=== PATIENT | male | born 1960 | race Caucasian/White ===

== ENCOUNTER 2023-10-30 10:19 | Emergency (ER) | payer OTHER, SELFPAY ==
[2023-10-30] VITALS (7 sets, daily range): BP systolic 177–192; BP diastolic 87–101; PULSE 61–101; RESP 13–25; TEMP 36.2; O2SAT 96–98; BMI 28.3
--- NOTE | 2023-10-30 10:57 | EKG12_ITS ---
Test Reason : CHEST PAIN Blood Pressure : / mmHG Vent. Rate : 073 BPM Atrial Rate : 073 BPM P-R Int : 156 ms QRS Dur : 074 ms QT Int : 372 ms P-R-T Axes : 036 -09 038 degrees QTc Int : 409 ms Normal sinus rhythm Confirmed by Tony Galan ([id number]), publication editor AMANDA GAMBINO ([id number]) on 11/03/2023 6:59:06 AM Referred By: Confirmed By:Tony Galan
--- NOTE | 2023-10-30 10:59 | EX.ED.DYSGE1 ---
HPI History of Present Illness Chief Complaint: Confusion Informant: patient and spouse/S.O. Onset/Context/Timing Onset: Days (10 days) Narrative Narrative: Patient presents with his secondary to confusion and paranoia. For the last 10 to 11 days patient has had increasing anxiety. He has been making statements that are not true and he is having difficulty truth from fiction. He was seen by traffic administrator at his PCPs office last Friday where blood work was obtained. He was given Zoloft and hydroxyzine. states that they stopped the hydroxyzine 2 days ago because it seem to be making him more anxious. He has an outpatient MRI scheduled on November 06, but states that they were sent to the ER today to try to expedite this. [facility] Medical History (Updated 10/30/23 @ 14:[address] Bev Wells MD) Vertigo Vasectomy planned Cholecystectomy planned Hypertension Home Medications ?Medication ?Instructions ?Recorded ?Last Taken ?Type lisinopril 20 mg tablet 20 mg PO DAILY 10/30/23 Unknown History sertraline 50 mg tablet 50 mg PO Q24H 10/30/23 Unknown History Allergy/AdvReac Type Severity Reaction Status Date / Time No Known Allergies Allergy Verified 10/30/23 10:31 Social History Smoking Status: Never smoker ROS ROS ED ROS Narrative Patient confused and not answering questions appropriately. EXAM Physical Exam Const Vital Signs: 10/30/23 10:19 10/30/23 10:19 10/30/23 11:37 Temperature 97.2 F L Temperature Source Temporal Pulse Rate 98 101 H 73 Respiratory Rate 14 14 25 H Blood Pressure 178/101 H 178/101 H 182/87 H Blood Pressure Mean 126 126 118 Pulse Ox 98 98 98 Oxygen Delivery Method Room Air Room Air Room Air 10/30/23 11:37 10/30/23 12:00 10/30/23 13:00 Temperature Temperature Source Pulse Rate 69 61 63 Respiratory Rate 22 H 21 H 22 H Blood Pressure 182/87 H 192/95 H 177/89 H Blood Pressure Mean 118 127 118 Pulse Ox 96 97 97 Oxygen Delivery Method Room Air 10/30/23 14:00 Temperature Temperature Source Pulse Rate 79 Respiratory Rate 23 H Blood Pressure 179/99 H Blood Pressure Mean 125 Pulse Ox 96 Oxygen Delivery Method Room Air Positive well nourished and well developed General Appearance ED: well developed HEENT Reports moist mucous membranes Eyes Eyes Narrative: Pupils approximate 4 mm bilaterally and reactive. Patient staring straight forward and does not make appropriate eye contact. Neck Neck Narrative: No meningismus or rigidity. Chest Wall inspection of chest normal and palpation of chest normal Resp normal respiratory effort and clear to auscultation bilaterally Cardio regular rate and regular rhythm GI non-tender Palpation: soft Extremity normal to inspection Neuro Neuro Narrative: Patient not answering questions appropriately. He will follow commands to lift his arms and legs off the bed with no evidence of deficit. 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 EKG obtained to evaluate for cardiac arrhythmia/ischemia. IV line initiated. Labwork obtained to evaluate for leukocytosis, anemia, and electrolyte derangement. CT scan along with CT of the head and neck obtained to evaluate for any acute intracranial abnormalities. History & Record Review Discussion w/independent historian: Patient and Significant other Lab Data Attestation: I reviewed the patient's lab results. Labs: Laboratory Results - last 24 hr 10/30/23 10/30/23 11:00 13:55 WBC 17.1 H RBC 5.90 Hgb 17.1 H Hct 50.2 MCV 85.1 MCH 29.0 MCHC 34.1 RDW Std Deviation 37.9 RDW Coeff of Hallie 12.2 Plt Count 386 MPV 9.3 Immature Gran % (Auto) 0.300 Neut % (Auto) 81.2 H Lymph % (Auto) 10.4 L Storey % (Auto) 7.8 Eos % (Auto) 0.1 Baso % (Auto) 0.2 Absolute Neuts (auto) 13.9 H Absolute Lymphs (auto) 1.78 Nucleated RBC % 0 Sodium 133 L Potassium 4.1 Chloride 104 Carbon Dioxide 20.0 L Anion Gap 9 BUN 12 Creatinine 1.01 Estim Creat Clear Calc 86.81 Est GFR (MDRD) Af Amer 96 Est GFR (MDRD) Non-Af 79 BUN/Creatinine Ratio 11.9 Glucose 119 H Calcium 9.6 Total Bilirubin 0.60 Direct Bilirubin 0.19 AST 20 ALT 32 Alkaline Phosphatase 93 Total Protein 7.9 Albumin 3.8 Globulin 4.1 Ur Drug Screen Comment Ethyl Alcohol < 3.0 Radiography Chest X-Ray - ED: 1 View, Read by ED Physician, Chronic Changes and No Infiltrates Diagnostic Testing: Clinical Impression(s) from Imaging Studies Head/Neck CTA 10/30/23 11:30 IMPRESSION: Minimal plaque formation at the origin of the left internal carotid artery. Findings suggest normal pressure hydrocephalus. Electronically Signed: Derek Moore MD at 12:20 EDT , Chest X-Ray 10/30/23 12:30 IMPRESSION: Normal x-ray examination of the chest. Electronically Signed: Derek Moore MD at 12:47 EDT , EKG Initial EKG: Attestation: I personally reviewed and interpreted this EKG as follows: Interpretation: Sinus Rhythm (Sinus rhythm at 73 bpm. No acute ischemia.) Treatment and Re-Evaluation :: CBC reveals leukocytosis with a white count of 17.1 and 81% neutrophils. Hemoglobin is concentrated at 17.1. Chemistry studies unremarkable with normal renal function. LFTs are normal. EtOH is less than 3. Portable chest x-ray per my interpretation reveals chronic changes with no focal infiltrate. Radiology interpretation reviewed and agrees. EKG is sinus rhythm with no evidence of acute ischemia. CTA of the head and neck obtained along with noncontrast head CT. This reveals changes concerning for normal pressure hydrocephalus. There is minimal plaque formation at the origin of the left internal carotid. Test results were discussed with at bedside. Patient is currently sleeping comfortably. With patient having problems with vertigo I do question whether this may be balance issues associated with NPH. He is now having increased confusion and agitation. I do feel he warrants evaluation at a facility with neurosurgery available given his findings of NPH. Patient has been accepted at [facility] for ER to ER transfer and evaluation. Discharge Plan Triage Chief Complaint: Confusion ED Provider: Bev Wells Dx/Rx/DC Orders Clinical Impression: NPH (normal pressure hydrocephalus), Confusion, Leukocytosis Prescriptions: No Action sertraline 50 mg tablet 50 mg PO Q24H lisinopril 20 mg tablet 20 mg PO DAILY Primary Care Provider: Nico Pace Referrals: Nico Pace MD [Primary Care Provider] - Print Language: Faroese Disposition Disposition: Acute Care Hospital Discharge Location: [facility] / [facility]
[2023-10-30 11:15] LABS: Absolute Lymphocyte Count 1.78 X10^3/uL (0.83-4.51); Absolute Neutrophil Count 13.9 X10^3/uL (2.0-7.7); Basophil# 0.03 X10^3/uL; Basophil% 0.2 % (0-1); Eosinophil# 0.01 X10^3/uL; Eosinophils% 0.1 % (0-5); Hematocrit 50.2 % (40-54); Hemoglobin 17.1 g/dL (13.0-16.5); Lymphocyte # 1.78 X10^3/ul (0.83-4.51); Lymphocyte % 10.4 % (19-41); Mean Corp Hgb Conc 34.1 g/dL (32-36); Mean Corpuscular Volume 85.1 fL (80-94); Mean Platelet Vol. 9.3 fl (6.2-12.0); Monocyte# 1.33 X10^3/uL; Monocyte% 7.8 % (0-10); NRBC Flagged by Analyzer 0 % (0-5); Neutrophil # 13.93 X10^3/uL (2.7-7.7); Neutrophil % 81.2 % (47-70); Platelet Count 386 K/mm3 (150-450); RBC Distribution Width CV 12.2 % (11.6-14.6); RBC Distribution Width SD 37.9 fl (35.1-43.9); White Blood Count 17.1 K/mm3 (4.4-11.0)
[2023-10-30 11:25] LABS: Alcohol, Blood (Medical)-Serum < 3.0 mg/dL
--- NOTE | 2023-10-30 11:30 | CT_ITS ---
STUDY: CTA HEAD AND NECK WITH CONTRAST REASON FOR EXAM: Male, 63 years old. Confusion RADIATION DOSAGE (If Supplied By Facility): CTDIvol = ( 28.23 ) mGy, DLP = ( 1536.74 ) mGycm TECHNIQUE: CT angiography was performed with a multi-detector CT scanner. Data acquisition was obtained from the skull base through the vertex following intravenous administration of IV 100mL [id number]-[id number]. MIP images were reconstructed from the axial data set. Post-processing of the angiographic images was performed, with multiplanar reformation and 3D reconstruction. Individualized dose optimization techniques were used for this CT. COMPARISON: No relevant priors. FINDINGS: Normal bilateral petrous carotid arteries. Normal right cavernous carotid artery with a normal supraclinoid bifurcation. Normal left cavernous carotid artery with a normal supraclinoid bifurcation. Normal right A1 segments of the anterior cerebral artery. Normal left A1 segments of the anterior cerebral artery. Normal intact anterior communicating artery (ACOM). Normal bilateral A2 segments of the anterior cerebral arteries. Normal right M1 and M2 segments of the middle cerebral arteries, with a normal M1 bifurcation. Normal left M1 and M2 segments of the middle cerebral arteries, with a normal M1 bifurcation. Normal right posterior communicating artery (PCOM). Normal left posterior communicating artery (PCOM). Normal bilateral vertebral arteries. Normal basilar artery with a normal basilar bifurcation. The visualized bilateral superior cerebellar (SCA) arteries are normal. Normal bilateral P1, P2 and visualized P3 segments of the posterior cerebral arteries. There is no demonstrated aneurysm of the rampart of [place]. Findings suggestive of normal pressure hydrocephalus. There is a 1.7 cm x 1.3 cm cystic nodule in the right lobe of the thyroid. AORTIC ARCH: Normal visualized aortic arch. Normal origins of the brachiocephalic, left common carotid, and left subclavian arteries. RIGHT CAROTID ARTERIES: Normal right common carotid artery (CCA). Normal right common carotid bulb. Normal origin of the right internal carotid (ICA) artery without a hemodynamically significant stenosis. Normal visualized cervical portion of the right internal carotid artery. Normal origin of the right external carotid artery (ECA). LEFT CAROTID ARTERIES: Normal left common carotid artery (CCA). Normal left common carotid bulb. There is mild atherosclerotic plaque formation of the origin of the left internal carotid artery with less than 50% cross sectional diameter stenosis. Normal visualized cervical portion of the left internal carotid artery. Normal origin of the left external carotid artery (ECA). VERTEBRAL ARTERIES: There is enhancement within the bilateral vertebral arteries with a small left vertebral artery, and a dominant right vertebral artery. CT/CTA Head AND Neck W/ Contrast IMPRESSION: Minimal plaque formation at the origin of the left internal carotid artery. Findings suggest normal pressure hydrocephalus. Electronically Signed: Derek Moore MD at 12:20 EDT ,
[2023-10-30 11:32] LABS: AST(SGOT) 20 U/L (15-37); Alanine Aminotransfer ALT/SGPT 32 U/L (16-61); Albumin, Serum 3.8 g/dL (3.2-5.0); Alkaline Phosphatase 93 U/L (45-117); Anion Gap 9 (5-15); BUN 12 mg/dL (7-18); BUN/Creat Ratio 11.9 RATIO (10-20); Bilirubin, Direct 0.19 mg/dL (0.00-0.30); Calcium,Total 9.6 mg/dL (8.5-10.1); Chloride 104 mmol/L (98-107); Creatinine, Serum 1.01 mg/dL (0.70-1.30); EST Glomerular Filtration Rate 79 mL/min (>60); Est Glom Filt Rate - Afr Amer 96 mL/min (>60); Estimated Creatinine Clearance 86.81 ml/min; Globulin 4.1 g/dL (2.2-4.2); Glucose 119 mg/dL (74-106); Potassium 4.1 mmol/L (3.5-5.1); Protein, Total 7.9 g/dL (6.4-8.2); Sodium Level 133 mmol/L (136-145)
[2023-10-30] MEDS: 0.9% Normal Saline (1000mL) 1,000 ML 150 ML IV (11:38)
--- NOTE | 2023-10-30 12:30 | RAD_ITS ---
STUDY: X-RAY CHEST REASON FOR EXAM: Male, 63 years old. Confusion TECHNIQUE: Single AP portable view of the chest. COMPARISON: Comparison is made with prior study July 17, 2007. FINDINGS: EKG electrodes are seen. The lungs are clear and expanded. There is no demonstrated pleural abnormality. Normal size heart. Normal mediastinum and all. Normal visualized pulmonary arteries. Normal visualized aortic arch and descending thoracic aorta. There are degenerative changes of the visualized thoracic spine. Normal visualized ribs, clavicles, and shoulders. There is no demonstrated abnormality of the visualized soft tissue structures of the upper abdomen. RAD/Chest 1 View (Portable) IMPRESSION: Normal x-ray examination of the chest. Electronically Signed: Derek Moore MD at 12:47 EDT ,
[2023-10-30 14:01] LABS: Mucous, Urine 0 SEEN /hpf (<or=2+); Red Blood Cells-Urine 0 SEEN /hpf (0-5)
[2023-10-30 14:23] LABS: Amphetamine Urine VISTA NEGATIVE (<1000 ng/mL); Barbiturate Urine VISTA NEGATIVE (< 200 ng/mL); Benzodiazepine Urine VISTA NEGATIVE (< 200 ng/mL); Cocaine Urine VISTA NEGATIVE (< 300 ng/mL); Ecstacy Urine VISTA NEGATIVE (< 500 ng/mL); Methadone Urine VISTA NEGATIVE (< 300 ng/mL); PCP Urine VISTA NEGATIVE (< 25 ng/mL); THC Urine VISTA NEGATIVE (< 50 ng/mL); Vista UDS pH Range 6
[2023-10-30 14:27] LABS: Color, Urine Yellow (Yellow); Glucose, Dipstick Normal (Normal); Ketone-Dipstick 15 mg/dl (Negative); Leukocyte Esterase-Dipstick Negative /ul (Negative); Nitrite-Dipstick Negative (Negative); Occult Blood-Urine Negative /ul (Negative); Protein-Dipstick Negative (Negative); Urine Bilirubin Dipstick Negative (Negative); Urine Clarity Clear (Clear); Urine Urobilinogen Normal (Normal)
[2023-10-30 14:42] LABS: Squamous Epithelial Cells - UA 0-5 SEEN /hpf (0-5)
[2023-10-30 14:43] LABS: Bacteria RARE /hpf (None Seen); White Blood Cells 0-5 SEEN /hpf (0-5)
== END 2023-10-30 15:56 | disposition short-term general hospital (02) ==
PROVIDERS: Emergency Provider Emergency Medicine; PCP Family Medicine; Visit Provider Emergency Medicine
DX: R41.0 Disorientation, unspecified (principal); D72.829 Elevated white blood cell count, unspecified; F41.9 Anxiety disorder, unspecified; Z79.899 Other long term (current) drug therapy
CPT/HCPCS: 70496; 70498; 71045; 80048; 80076; 80307; 80320; 81001; 85025; 93005; 99285; Q9967; A4216; G0480